=== PATIENT | male | born 1995 | race Caucasian/White ===

== ENCOUNTER 2021-05-19 03:29 | Emergency (ER) | payer OTHER ==
[~2021-05-19] VITALS: Ht 185.4 cm; Wt 88.5 kg
[2021-05-19 04:40] VITALS: BP 132/76
== END 2021-05-19 05:30 | disposition home or self-care (01) ==
LOC: ER 03:29
DX: S66.911A Strain of unspecified muscle, fascia and tendon at wrist and hand level, right hand, initial encounter (principal); S86.911A Strain of unspecified muscle(s) and tendon(s) at lower leg level, right leg, initial encounter; W18.39XA Other fall on same level, initial encounter; Y93.89 Activity, other specified; Y92.89 Other specified places as the place of occurrence of the external cause; Y99.0 Civilian activity done for income or pay
CPT/HCPCS: 73110; 73562

== ENCOUNTER 2024-06-09 07:38 | Emergency (ER) | payer OTHER ==
[~2024-06-09] VITALS: Ht 182.9 cm; Wt 97.0 kg
[2024-06-09 07:56] VITALS: BP 128/83; PULSE 69; RESP 17; TEMP 98.6; O2SAT 98
[2024-06-09] MEDS ORDERED: CEPH500C PO (08:20)
== END 2024-06-09 08:34 | disposition home or self-care (01) ==
LOC: ER 07:38
DX: S61.216D Laceration without foreign body of right little finger without damage to nail, subsequent encounter (principal); Z48.02 Encounter for removal of sutures; X58.XXXD Exposure to other specified factors, subsequent encounter